=== PATIENT | male | born 1980 | race Caucasian/White ===

== ENCOUNTER 2017-05-13 19:28 | Emergency (ER) | payer OTHER ==
[~2017-05-13] VITALS: Ht 180.3 cm; Wt 95.0 kg
[~2017-05-13 19:28] MED LIST: FLEXERIL10 MG PO; MOTRIN600 MG PO; NOHOMEMEDS; ULTRAM50 MG PO
[2017-05-13 19:30] VITALS: BP 154/107
[2017-05-13] MEDS ORDERED: MEDROL DOSEPAK4 MG PO (19:46)
[2017-05-13] MEDS ORDERED: NAPROSYN500 MG PO (19:46)
[2017-05-13] MEDS ORDERED: FLEXERIL10 MG PO (19:46)
== END 2017-05-13 20:05 | disposition home or self-care (01) ==
LOC: EME 19:28
DX: S46.911A Strain of unspecified muscle, fascia and tendon at shoulder and upper arm level, right arm, initial encounter (principal); X50.9XXA Other and unspecified overexertion or strenuous movements or postures, initial encounter; Y99.0 Civilian activity done for income or pay
CPT/HCPCS: 99281; 99283